=== PATIENT | female | born 1955 | race Hispanic/Latino ===

== ENCOUNTER 2016-07-15 18:10 | Emergency (ER) | payer SELFPAY | END 2016-07-15 18:40 | disposition left against medical advice (07) | LOC: ED 18:10 | DX: R21 Rash and other nonspecific skin eruption (principal); Z53.21 Procedure and treatment not carried out due to patient leaving prior to being seen by health care provider ==

== ENCOUNTER 2017-07-28 05:51 | Day surgery (SDC) | payer OTHER ==
--- NOTE | 2017-07-27 17:31 | Anesthesia Consultation ---
Anesthesia Consult and Med Hx Date of service: 07/27/17 - Airway Anesthetic Teeth Evaluation: Good ROM Head & Neck: Adequate Mallampati Class: Class II Intubation Access Assessment: Probably Good - Pulmonary Exam CTA: Yes - Cardiac Exam Cardiac Exam: RRR - Pre-Operative Health Status ASA Pre-Surgery Classification: ASA3 Proposed Anesthetic Plan: General - Pulmonary Hx Smoking: Yes (5 CIG/DAY FOR 10 YEARS) Hx Asthma: No Hx Respiratory Symptoms: Yes SOB: No COPD: Yes Home Oxygen Therapy: No Hx Pneumonia: No Hx Sleep Apnea: No - Cardiovascular System Hx Hypertension: No Hx Coronary Artery Disease: No Hx Heart Attack/AMI: No Hx Angina: No Hx Percutaneous Transluminal Coronary Angioplasty (PTCA): No Hx Cardia Arrhythmia: No Hx Pacemaker: No Hx Internal Defibrillator: No Hx Valvular Heart Disease: No Hx Heart Murmur: No Hx Peripheral Vascular Disease: Yes - Central Nervous System Hx Neuromuscular Disorder: No CVA: No Hx Back Pain: No Hx Psychiatric Problems: No - Gastrointestinal Hx Ulcer: No Hx Gastroesophageal Reflux Disease: No - Endocrine Hx Renal Disease: No Hx End Stage Renal Disease: No Hx Liver Disease: No Hx Insulin Dependent Diabetes: No Hx Non-Insulin Dependent Diabetes: No Hx Thyroid Disease: No Hx Hyperthyroidism: No - Hematic Hx Anemia: No Hx Sickle Cell Disease: No - Other Systems Hx Alcohol Use: No Hx Substance Use: No Hx Cancer: No Hx Obesity: No - Additional Comments Anesthesia Medical History Comments: no anesthesia problems
[~2017-07-28 05:51] MED LIST: LACTATED RINGERS 1,000 ML IV SCH; PEPCID PO NR
[2017-07-28] MEDS ORDERED: ceFAZolin 2 GM in NACL 0.9% 100 ML IV ONE (06:00)
[2017-07-28] MEDS ORDERED: NACL BACTERIOSTATIC INFILTRATI ONE (06:24)
[2017-07-28] MEDS ORDERED: MARCAINE 0.5% INFILTRATI ONE ×2 (06:40→07:39)
[2017-07-28] MEDS ORDERED: ANCEF/STERILE WATER 2 GM/20 ML 2 GM/20 ML SYRINGE IV NR (07:00)
[2017-07-28] MEDS ORDERED: NACL 0.9% 1000 ML 1,000 ML IV SCH (07:13)
[2017-07-28] MEDS ORDERED: HumuLIN R SUB-Q NR (07:21)
[2017-07-28] MEDS ORDERED: PEPCID ONE (07:28)
[2017-07-28] MEDS ORDERED: SUBLIMAZE ONE (07:36)
[2017-07-28] MEDS ORDERED: ZEMURON IV ONE (07:36)
[2017-07-28] MEDS ORDERED: DIPRIVAN 10 MG/ML IV ONE (07:36)
[2017-07-28] MEDS ORDERED: QUELICIN ONE (07:36)
[2017-07-28] MEDS ORDERED: ZOFRAN ONE ×2 (07:36→09:36)
[2017-07-28] MEDS ORDERED: XYLOCAINE CARDIAC IV ONE (07:36)
[2017-07-28] MEDS ORDERED: DECADRON ONE (07:36)
[2017-07-28] MEDS ORDERED: NACL 0.9% IR ONE (07:39)
[2017-07-28] MEDS ORDERED: PEPCID PO NR (08:00)
--- NOTE | 2017-07-28 08:50 | Discharge Summary ---
Short Stay Discharge Plan Activity: other (august d/c when stable. home health for local wd care. reg diet. rto ) Weight Bearing Status: Partial Weight Bearing Diet: regular Wound: per wound nurse instructions Additional Instructions: aleve I po q 6-8 hrs prn for breakthrough pain. Home health. d/c packing on Monday irrigate wd with NS and place wd vac Follow up with: RUPERTO REGAN MD [Staff Physician] - 08/01/17
[2017-07-28] MEDS ORDERED: ROBINUL ONE (08:52)
[2017-07-28] MEDS ORDERED: NEOSTIGMINE ONE (08:52)
[2017-07-28] MEDS ORDERED: TORADOL ONE (08:52)
[2017-07-28] MEDS: DILAUDID IV PRN ×2 (09:15→09:25)
[2017-07-28] MEDS ORDERED: ZOFRAN IV NR (09:35)
--- NOTE | 2017-07-28 09:40 | Operative Report ---
PREOPERATIVE DIAGNOSIS: Large infected back mass approximately 12 x 10 cm and extending down to the muscle fascia. POSTOPERATIVE DIAGNOSIS: Rule out infected sebaceous cyst, cultures taken. PROCEDURE: Complete excision and packing of large infected back mass. SURGEON: Lj Pedroza M.D. ANESTHESIA: General. ESTIMATED BLOOD LOSS: Minimal. DRAINS: None. COMPLICATIONS: None. DESCRIPTION OF PROCEDURE: The patient was taken to the operating room, placed in a prone position, and prepped and draped in the usual sterile fashion. The large erythematous, indurated, and tender mass was outlined with a marking pencil. An 11 blade was used to incise the skin and subQ. A fair amount of purulence and sebum were drained. Aerobic and anaerobic cultures were taken. Stefanie retractors and subsequently [employer] were used for retraction. Electrocautery was used to dissect the mass including capsule in its entirety. The mass extended down to the muscle fascia. The entire area was then removed and sent to pathology. The abscess cavity was irrigated copiously and dried. I checked for hemostasis and noted to be dry. The patient was known to be on aspirin and Plavix, which had been discontinued a few days preop. Meticulous hemostasis was obtained. The cavity was then once again irrigated copiously with saline and suctioned dry. Once again checked for hemostasis and noted to be dry. Kerlix roll packing was then placed and the entire cavity tightly packed. A 0.5% Marcaine was infiltrated over the area for postoperative pain relief. Fluffs and pressure dressing were applied. The patient tolerated the procedure well and left the OR in stable condition. JOB# [id number] FP/MORRIS
[2017-07-28] MEDS ORDERED: NORCO 5/325 PO PRN (09:46)
[2017-07-28] MEDS ORDERED: TRANSDERM-SCOP TD ONE (10:49)
[2017-07-28] MEDS ORDERED: REGLAN IV ONE (10:49)
[2017-07-28 11:37] VITALS: BP 114/57
== END 2017-07-28 11:35 | disposition home or self-care (01) ==
LOC: OR 05:51
PROVIDERS: ATTEND Surgery
DX: L72.3 Sebaceous cyst (principal); J44.9 Chronic obstructive pulmonary disease, unspecified; E11.9 Type 2 diabetes mellitus without complications; F17.210 Nicotine dependence, cigarettes, uncomplicated; Z79.899 Other long term (current) drug therapy; Z88.6 Allergy status to analgesic agent; Z88.1 Allergy status to other antibiotic agents
CPT/HCPCS: 21933; 82962; 87075; 87116; 88305; J0330; J0690; J1100; J1170; J1885; J2001; J2405; J2704; J2710; J2765; J3010; J7030; 88304; J1815; J7120

== ENCOUNTER 2021-07-20 16:19 | Outpatient (CLI) | payer OTHER, MEDICARE ==
[2021-07-20 16:51] LABS: BUN/Creatinine Ratio 20; Blood Urea Nitrogen 16 mg/dL (7-17); Calcium 8.9 mg/dL (8.4-10.2); Hemolysis Index 9
== END 2021-07-20 16:20 | disposition home or self-care (01) ==
LOC: LAB 16:19
PROVIDERS: ATTEND Surgery Vascular Surgery
DX: Z01.812 Encounter for preprocedural laboratory examination (principal); I70.222 Atherosclerosis of native arteries of extremities with rest pain, left leg; I70.213 Atherosclerosis of native arteries of extremities with intermittent claudication, bilateral legs; G65.1 Sequelae of other inflammatory polyneuropathy; Z95.820 Peripheral vascular angioplasty status with implants and grafts
CPT/HCPCS: 36415; 80048